=== PATIENT | female | born 1990 | race Caucasian/White ===

== ENCOUNTER 2023-03-20 10:44 | Outpatient (OUT) | payer OTHER, SELFPAY ==
--- NOTE | 2023-03-20 10:45 | US_ITS ---
The [address] [address] Patient Name: BRIGHT JOVEL MRN: [id number] date: 1990 Sex: F Assigned Patient Location: Current Patient Location: Accession/Order Number: [id number] Exam Date: 03/20/2023 10:50 Report Date: 03/21/2023 07:25 At the request of: TOPHER NGO Procedure: US pelvis w/ transvaginal EXAMINATION: US pelvis w/ transvaginal HISTORY: PELVIC PAIN IN FEMALE R10.2 COMPARISON: No relevant comparison available. FINDINGS: Transabdominal and transvaginal images The uterus is normal in size, contour and echotexture measuring 7.9 x 3.9 x 4.7 cm, anteverted. Mildly heterogeneous echotexture with posterior myometrial hyperechogenic mass measuring 1.3 x 0.8 x 1.0 cm The endometrium measures 1.8 mm, thin The right ovary is normal in appearance measuring 2.2 x 1.3 x 2.0 cm. Normal color Doppler flow. The left ovary measures 2.2 x 1.6 x 2.0 cm. Normal color and Doppler flow. No free fluid US/US pelvis w/ transvaginal IMPRESSION: 1.3 cm posterior myometrial mass, a fibroid is statistically favored Electronically authenticated by: CARLA GOTTLIEB Date: 03/21/2023 07:25
== END 2023-03-20 10:45 | disposition home or self-care (01) ==
LOC: US 10:45
PROVIDERS: Visit Provider Obstetrics & Gynecology
DX: R10.2 Pelvic and perineal pain (principal); N85.8 Other specified noninflammatory disorders of uterus
CPT/HCPCS: 76830; 76856

== ENCOUNTER 2023-04-15 07:57 | Outpatient (OUT) | payer OTHER, SELFPAY ==
--- NOTE | 2023-04-15 | CT_ITS ---
[address] [address] Patient Name: BRIGHT JOVEL MRN: [id number] date: 1990 Sex: F Assigned Patient Location: CT Current Patient Location: CT Accession/Order Number: [id number] Exam Date: 04/15/2023 09:00 Report Date: 04/15/2023 11:27 At the request of: TOPHER NGO Procedure: CT abdomen pelvis wo/w con CLINICAL HISTORY: Uterine leiomyoma, unspecified location D25.9. Lower abdominal, pelvic pain for the past 2 months. EXAMINATION: Unenhanced, enhanced CT scan of the abdomen and pelvis: 04/15/2023. COMPARISON: Pelvic ultrasound 03/20/2023. TECHNIQUE: 3 mm axial images from lung bases through ischial tuberosities without and following administration of intravenous contrast were obtained. Oral contrast was utilized as well. Sagittal and coronal reconstructions were also performed. 98 mL of Omnipaque 300 was utilized as intravenous contrast. Dose reduction techniques were achieved by using automated exposure control and/or adjustment of mA and/or kV according to patient size and/or use of iterative reconstruction technique. FINDINGS: Lung bases appear normal. The heart size seems normal. There are no filling defects in the visualized cardiac chambers. CT ABDOMEN: On the noncontrast images there are no suspicious calcifications in the solid organs, kidneys, ureters, or the uterus. Postcontrast the liver, spleen, gallbladder, pancreas, adrenal glands, kidneys appear normal. There is no hydronephrosis, nephrolithiasis, or perinephric fat stranding. There is mildly dilated right ureter however there is no obvious radiopaque calculi are seen. There is symmetrical enhancement of the right as well as left kidney. There is a small low-attenuation lesion in the midpole posterior cortex of the right kidney, which measures 3 mm and difficult to see on the precontrast images even in retrospect. The abdominal aorta has normal caliber. There is no retroperitoneal or mesenteric adenopathy. The bowel loops are of normal caliber. Appendix is not well seen. CT PELVIS: There is probably a subserosal fibroid along the left aspect of the uterus, which measures approximately 2.4 cm, corresponding to the lesion seen on the CT examination. The remainder of the uterus and ovaries appear normal. The bladder seems normal. There is no pelvic adenopathy. No discrete focal fluid collections are seen. The visualized osseous structures seem normal. CT/CT abdomen pelvis wo/w con IMPRESSION: 1. No obvious explanation for the patient's symptoms. 2. There is no nephro or ureterolithiasis. There is a tiny cyst in the right kidney. 3. Appendix is not seen but no secondary signs of acute appendicitis. 4. There is a left-sided subserosal fibroid in the uterus. Electronically authenticated by: HALEIGH MORALES Date: 04/15/2023 11:27
== END 2023-04-15 07:58 | disposition home or self-care (01) ==
LOC: CT 07:57
PROVIDERS: Visit Provider Obstetrics & Gynecology
DX: D25.9 Leiomyoma of uterus, unspecified (principal); R93.5 Abnormal findings on diagnostic imaging of other abdominal regions, including retroperitoneum
CPT/HCPCS: 74178; Q9967